=== PATIENT | male | born 1955 | race Caucasian/White ===

== ENCOUNTER → 2018-10-19 | Outpatient (CLI) | payer BC ==
[~2018-10-19] VITALS: Ht 185.4 cm; Wt 146.1 kg
[~2018-10-19] MED LIST: ALEVE220 MG PO; ASPIR 8181 M1 PO; COUMADIN7.5 MG PO; DIOVAN160 MG PO; KLOR-CON 1010 MEQ PO; LASIX 40 MG TAB40 M2 PO; LIPITOR80 MG PO; LOPRESSOR50 PO; METFORMIN HCL500 MG PO; NEURONTIN 300300 M1 PO; ZANTAC 150MG T150 MG PO
[2018-10-19 08:42] VITALS: BP 130/76
[2018-10-19 08:55] LABS: HEMATOCRIT 45.1 % (42.0-52.0); MCHC 33.4 g/dL (28.0-37.0); MPV 8.4 fl. (7.2-11.1); RBC 5.37 mil/uL (4.50-6.00); RDW-CV 15.6 % (10.5-14.5); WBC 6.8 thou/uL (4.0-11.0)
[2018-10-19 09:09] LABS: APTT 24.8 Seconds (25.0-31.3); PROTIME 10.4 Seconds (9.20-11.50)
[2018-10-19 09:19] LABS: ALBUMIN 3.8 g/dL (3.4-5.0); ALKALINE PHOSPHATASE 70 U/L (46-116); ANION GAP 6 mmol/L (7-16); BUN 19 mg/dL (7-18); CALCIUM 9.3 mg/dL (8.5-10.1); CHLORIDE 104 mmol/L (98-107); CO2 29 mmol/L (21-32); CREATININE 1.2 mg/dL (0.6-1.3); GLUCOSE 138 mg/dL (70-99); POTASSIUM 4.2 mmol/L (3.5-5.1); SGOT 30 U/L (15-37); SGPT 64 U/L (30-65); SODIUM 139 mmol/L (136-145); TOTAL BILIRUBIN 1.1 mg/dL (<0.1-1.0); TOTAL PROTEIN 7.6 g/dL (6.4-8.2)
--- NOTE | 2018-10-19 09:45 | EKG ---
[place] [address] ELECTROCARDIOGRAM REPORT Name: ATILIO QUIROZ Room: [facility]#: [id number] Admission: 10/19/18 Attend Phys: Aníbal Hector MD Discharge: Date of : 55 Report #: [id number] THIS REPORT FOR: //name// [facility] Test Date: 2018-10-19 Test Time: 09:06:26 Pat Name: ATILIO CURIELY Department: Room: Gender: M Early Childhood Aide Classroom: : 1955 Requested By: Aníbal Hector Order Number: [id number] Reading MD: Brendan Golden Measurements Intervals Dillon Rate: 69 P: 42 IN: 211 QRS: 6 QRSD: 158 T: 34 QT: 432 QTc: 463 Interpretive Statements Sinus rhythm Right bundle branch block Inferior infarct, old Compared to ECG 01/26/2006 14:59:59 Right bundle-branch block now present Myocardial infarct finding still present Electronically Signed On 10-19-2018 9:45:07 [employer] by Brendan Golden [email or web address] <ELECTRONICALLY SIGNED> By: Brendan Golden MD, [facility] 10/19/18 0945 5 5 Brendan Golden MD, [facility] /EPI
[2018-10-19 10:06] LABS: CHOLESTEROL 141 mg/dL (<200); HDL CHOLESTEROL 39 mg/dL (>40); LDL CHOLESTEROL 82 mg/dL (<100); SERUM ASSESSMENT Clear; TC:HDL 3.6 Ratio (Not establshd); TRIGLYCERIDE 104 mg/dL (<150); VLDL 21 mg/dL (<40)
[2018-10-19 11:34] VITALS: BP 108/68
[2018-10-19 11:46] VITALS: BP 108/63
[2018-10-19 12:01] VITALS: BP 111/68
[2018-10-19 12:16] VITALS: BP 109/69
[2018-10-19 12:30] VITALS: BP 143/72
--- NOTE | 2018-10-19 16:39 | CARD ---
[address] [address] CARDIAC CATH REPORT Name: ATILIO QUIROZ Room: [facility]#: [id number] Admission: 10/19/18 Attend Phys: Aníbal Hector MD Discharge: Date of : 55 Report #: [id number] THIS REPORT FOR: //name// APPROVED REPORT Study performed: 10/19/2018 08:52:56 Patient Details Patient Status: Out-Patient Room #: The patient is a 63 year-old male Event Personnel Aníbal Hector Electronic Die Maker, Trupti Melgar RN RN, Navdeep Cottrell (R) Monitor, Yariel Thomas Scrub Procedures Performed Art Access - R radial artery , [id number] C , Left Ventriculogram Procedure Narrative The patient was brought electively to the Cardiac Catheterization Laboratory and was prepped and draped in a sterile manner. The right wrist was infiltrated with 1% Lidocaine subcutaneous anesthesia. A Slender Glidesheath sheath was inserted into the right radial artery. Coronary angiography was performed using coronary diagnostic catheters. The right coronary system was accessed and visualized with a DCR: Sylvester 4.0 5fr catheter. The left coronary system was accessed and visualized with a AL1 5fr catheter. The left ventricle was accessed and visualized with a PC: Angled Pig 5fr catheter. Left ventricular/Aortic Valve gradient assessed via catheter pullback. Left ventriculogram was performed in CLEMONS projection. Hemostasis was obtained with manual pressure following sheath removal without any complications. Intraoperative Conscious Sedation Sedation start time: 10:35 Case end Time: 11:15 Fentanyl 50 mcg Versed 2 mg Fluoro Time: 21.4 minutes Dose: DAP 849002 cGycm2 3476.85 mGy Contrast Type and Amount: Omnipaque 145 [place] [address] CARDIAC CATH REPORT Name: ATILIO QUIROZ Room: [facility]#: [id number] Admission: 10/19/18 Attend Phys: Aníbal Hector MD Discharge: Date of : 55 Report #: [id number] The patient's coronary anatomy is right dominant. Diagnostic Cath Left Main Normal LAD Normal in the proximal mid and distal portion. Diagonal 1 50% proximal narrowing. Diagonal 2 Normal. Circumflex 20% proximal narrowing. The mid and distal vessel are normal. OM1 Normal and small in caliber. OM2 Normal and large in caliber. Right Coronary Totally occluded proximally. Mid vessel seen by right to right collaterals. 90% stenosis after the acute marginal branch. R PDA Faintly filled by [id number]-[id number] collaterals. No obvious stenosis. RPLV Faintly filled by ldhr-sj-uxnhe collaterals. No obvious stenosis. Left Ventriculography The left ventricle is normal in size with decreased contractility. The left ventricular ejection fraction is estimated to be 45-50%. Left ventricular wall motion abnormalities are present. The basal inferior wall appears akinetic and possibly mildly aneurysmal. Hemodynamics The aortic pressure is 116/64 mmHg with a mean of mmHg. The left ventricular pressure is 112/5 mmHg with a mean of mmHg. The left ventricular end diastolic pressure is 14 mmHg. There was no gradient across the aortic valve upon pullback. Pullback from the left ventricle to the aorta revealed no gradient across the aortic valve. Conclusion 1. Chronic total occlusion of the right coronary artery. 2. Mild plaquing of the first diagonal and proximal circumflex. 3. Distal right coronary artery filled by daei-zy-wcuzc collaterals. 4. Minimally elevated left ventricular end-diastolic pressure. 5. Inferior wall akinesis. 6. Mild left ventricular systolic dysfunction[place] [address] CARDIAC CATH REPORT Name: ATILIO QUIROZ Room: [facility]#: [id number] Admission: 10/19/18 Attend Phys: Aníbal Hector MD Discharge: Date of : 55 Report #: [id number] 1. Continue medical management and aggressive risk factor modification. <ELECTRONICALLY SIGNED> By: Aníbal Hector MD, [facility] 10/19/18 1639 1639 [id number] Hector MD, FACC /INF
== END | disposition home or self-care (01) ==
LOC: M.CL 08:25
PROVIDERS: Internal Medicine Cardiovascular Disease
DX: I25.10 Atherosclerotic heart disease of native coronary artery without angina pectoris (principal); I25.82 Chronic total occlusion of coronary artery; I11.0 Hypertensive heart disease with heart failure; I50.1 Left ventricular failure, unspecified; E11.9 Type 2 diabetes mellitus without complications; K21.9 Gastro-esophageal reflux disease without esophagitis; Z96.641 Presence of right artificial hip joint; Z98.890 Other specified postprocedural states; Z79.899 Other long term (current) drug therapy; Z86.711 Personal history of pulmonary embolism; Z79.01 Long term (current) use of anticoagulants; Z79.82 Long term (current) use of aspirin